=== PATIENT | male | born 1995 | race African-American/Black ===

== ENCOUNTER 2021-02-18 18:31 | Emergency (ER) | payer OTHER ==
--- NOTE | 2021-02-18 19:10 | ED Physician Documentation ---
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 Over the course of months his creatinine has been climbing from 1.2 and more recently kind of jumped over the last 5 days from 1.6-1.8. Initially he was on finasteride and this caused some transaminitis and the finasteride was discontinued. He had a renal ultrasound today and the results are unknown. The patient is completely asymptomatic. He does lift weights, some of his supplements may contain creatine. Review of Systems Constitutional: denies: Fever, Chills Cardiac: denies: Chest pain / pressure, Palpitations Respiratory: denies: Dyspnea, Cough PD PAST MEDICAL HISTORY - Present Medications Home Medications: Ambulatory Orders Medication Instructions Recorded Confirmed Clobetasol 0.05% Oint [Temovate 1 applic TOP DAILY 02/18/21 02/18/21 0.05% Oint] - Allergies Allergies/Adverse Reactions: Allergies Allergy/AdvReac Type Severity Reaction Status Date / Time No Known Drug Allergies Allergy Verified 02/18/21 18:38 PD ED PE NORMAL - Vitals Vital signs reviewed: Yes - General General: Alert and oriented X 3, No acute distress - Back Back: No CVA TTP, No spinal TTP - Derm Derm: Normal color, Warm and dry - Neuro Neuro: Alert and oriented X 3, Normal speech Results - Vitals Vitals: Vital Signs - 24 hr 02/18/21 02/18/21 18:38 19:15 Temperature 36.8 C 36.8 C Heart Rate 79 79 Respiratory 16 16 Rate Blood Pressure 138/75 H 138/75 H O2 Saturation 100 100 Oxygen O2 Source Room air - Labs Labs: Laboratory Tests 02/18/21 19:14 Sodium 140 Potassium 4.0 Chloride 102 Carbon Dioxide 29 Anion Gap 9.0 BUN 21 H Creatinine 1.5 H Estimated GFR (MDRD) 69 L Glucose 77 Calcium 9.6 Total Bilirubin 0.8 AST 32 ALT 28 Alkaline Phosphatase 55 Total Protein 7.6 Albumin 4.4 Globulin 3.2 Albumin/Globulin Ratio 1.4 PD MEDICAL DECISION MAKING - ED course ED course: His flight surgeon sent him here for repeat labs, his labs have improved. Departure - Departure Disposition: 01 Home, Self Care Clinical Impression: GUADALUPE (acute kidney injury) Condition: Good Record reviewed to determine appropriate education?: Yes Comments: Your creatinine today is actually somewhat better at 1.5. AST is 32, ALT 28, BUN 21, electrolytes normal. This represents an improvement from the labs that your flight surgeon told you about. Touch base with him tomorrow and make sure to have these labs available for his review. Return if worsening. As discussed make sure that your dietary supplements do not contain creatine.
[2021-02-18 19:33] LABS: ALBUMIN 4.4 g/dL (3.2-5.5); ALBUMIN/GLOBULIN RATIO 1.4 (1.0-2.2); BILIRUBIN,TOTAL 0.8 mg/dL (0.2-1.0); CALCIUM 9.6 mg/dL (8.5-10.3); CREATININE 1.5 mg/dL (0.6-1.2); TOTAL PROTEIN 7.6 g/dL (6.7-8.2)
[2021-02-18 19:53] VITALS: BP 135/75
== END 2021-02-18 19:52 | disposition home or self-care (01) ==
LOC: ED 18:31
DX: N17.9 Acute kidney failure, unspecified (principal)
CPT/HCPCS: 36415; 80053; 99283